=== PATIENT | male | born 1985 | race Two or more races ===

== ENCOUNTER 2025-02-27 11:22 | Inpatient (IN) | payer OTHER ==
[~2025-02-27] VITALS: Ht 170.2 cm; Wt 70.3 kg
[2025-02-27] MEDS ORDERED: ELIQUIS2.5 MG PO (13:21)
[2025-02-27] MEDS ORDERED: 0.9 % SODIUM CHLORIDE 1,000 ML IV STA (13:45)
[2025-02-27] MEDS ORDERED: FAMOTIDINE/PF 20 MG in 0.9 % SODIUM CHLORIDE 8 ML IV PUSH STA (13:47)
[2025-02-27] MEDS ORDERED: ONDANSETRON HCL 2 MG/ML VIAL IV STA (13:47)
[2025-02-27] MEDS ORDERED: ONDANSETRON HCL 2 MG/ML VIAL ONE (13:59)
[2025-02-27] MEDS ORDERED: FAMOTIDINE/PF 20 MG/2 ML VIAL ONE (14:00)
--- NOTE | 2025-02-27 14:23 | NUR ---
SE ORIENTA PTE SOBRE TX A SEGUIR, LA MISMA REFIERE ENTENDER. SE SANTOSH MUESTRA DE LAB, SE CANALIZA Y SE ADMINISTRA MED JHONATAN ORDEN MEDICA
[2025-02-27 14:32] LABS: HEMATOCRIT 44.8 % (39.0-48.0); HEMOGLOBIN 15.6 g/dL (13-16.00); MEAN CELL VOLUME 90.8 fL (80.0-100.00); MEAN CORPUSCULAR HEMOGLOBIN 31.5 pg (27.00-32.0); MEAN CORPUSCULAR HGB CONC 34.7 g/dl (32.0-36.0); PLATELET COUNT 320 K/uL (150-450); RED BLOOD COUNT 4.94 M/uL (4.00-6.00); RED CELL DISTRIBUTION WIDTH 15.4 % (11.5-14.5)
[2025-02-27 14:54] LABS: INR 1.15; PARTIAL THROMBOPLASTIN TIME 29.7 SECONDS (22.0-34.0); PROTHROMBIN TIME 12.4 SECONDS (9.0-11.5)
[2025-02-27 14:55] LABS: ALBUMIN 4.3 gm/dL (3.4-5.0); BILIRUBIN TOTAL 0.53 mg/dL (0.3-1.2); CALCIUM 8.6 mg/dL (8.5-10.1); CREATININE SERUM 0.9 mg/dL (0.70-1.30); GFR 94.44; GLOBULINA 4.2 G/DL (2.4-3.5); POTASSIUM 3.79 mEq/L (3.5-5.1); TOTAL PROTEIN 8.5 gm/dL (6.4-8.2)
[2025-02-27] MEDS ORDERED: METOCLOPRAMIDE HCL 10 MG in 0.9 % SODIUM CHLORIDE 50 ML IV ONE (17:30)
[2025-02-27] MEDS ORDERED: MORPHINE SULFATE 4 MG/ML VIAL IV ONE (17:30)
[2025-02-27] MEDS ORDERED: METOCLOPRAMIDE HCL 5 MG/ML VIAL ONE (17:41)
[2025-02-27] MEDS ORDERED: 0.9 % SODIUM CHLORIDE 1,000 ML IV SCH (18:45)
[2025-02-27] MEDS ORDERED: PIPERACILLIN/TAZOBACTAM SODIUM 3.375 GM in 0.9 % SODIUM CHLORIDE 100 ML IV SCH (18:53)
[2025-02-27] MEDS ORDERED: THIAMINE HCL 100 MG TABLET PO SCH (18:54)
[2025-02-27] MEDS ORDERED: ACETAMINOPHEN 500 MG GEL..CAP PO PRN (19:00)
[2025-02-27] MEDS ORDERED: MORPHINE SULFATE 4 MG/ML CARTRIDGE IV PRN (19:00)
[2025-02-27] MEDS ORDERED: ONDANSETRON HCL 4 MG in 0.9 % SODIUM CHLORIDE 50 ML IV PRN (19:00)
[2025-02-27] MEDS ORDERED: PANTOPRAZOLE SODIUM 40 MG/VIAL VIAL IV ONE (19:00)
[2025-02-27] MEDS ORDERED: PIPERACILLIN/TAZOBACTAM SODIUM 3.375 GM VIAL IV ONE (21:16)
[2025-02-27 23:05] LABS: ABG PH 7.416 (7.35-7.45); ABG pCO2 34.1 mmHg (35-45); BASE EXCESS -2.3 mmol/l; BICARBONATE 21.4 mmol/l (23-25); SaO2 96.6 %; Tco2 22.4 mmol/l; o2 21 %
[2025-02-27 23:06] LABS: allen test NO SATISFACTORY; mode ROOM AIR; puncture site RADIAL RIGHT
[2025-02-28 00:05] VITALS: BP 114/80; O2SAT 96
[2025-02-28] MEDS ORDERED: ACETAMINOPHEN 500 MG GEL..CAP PO ONE (00:09)
[2025-02-28 02:49] LABS: URINE BILIRRUBIN NEGATIVE (NEGATIVE); URINE BLOOD NEGATIVE; URINE GLUCOSE NEGATIVE (NEGATIVE); URINE KETONE 15 (NEGATIVE); URINE LEUKOCYTE NEGATIVE; URINE NITRATE NEGATIVE; URINE PROTEIN NEGATIVE (NEGATIVE); URINE UROBILINOGEN 0.2 E.U./dl
[2025-02-28 03:01] VITALS: BP 138/84
[2025-02-28 03:01] LABS: URINE APPEARANCE CLEAR; URINE COLOR YELLOW
[2025-02-28 03:02] LABS: URINE BACTERIA FEW; URINE EPITHELIAL CELLS 0-4 /HPF; URINE MUCUS NEGATIVE; URINE RBC 0-3 /HPF; URINE WBC 0-2 /hpf
[2025-02-28 07:45] LABS: MAGNESIUM 1.9 mg/dL (1.8-2.4); PHOSPHOROUS 4.1 mg/dL (2.5-4.9)
[2025-02-28] MEDS ORDERED: PANTOPRAZOLE SODIUM 40 MG/VIAL VIAL IV SCH (09:00)
[2025-02-28] MEDS ORDERED: CHLORDIAZEPOXIDE HCL 25 MG CAPSULE PO SCH (09:00)
[2025-02-28 10:14] VITALS: BP 133/84; O2SAT 100
== END 2025-02-28 11:34 | disposition left against medical advice (07) | DRG 440 ==
LOC: ER 11:22 → MEDJ 18:55
PROVIDERS: Emergency Medicine; General Practice; ADMIT Student in an Organized Health Care Education/Training Program; ATTEND Student in an Organized Health Care Education/Training Program
PROC: BW40ZZZ Ultrasonography of Abdomen (ICD-10-PCS; principal; 2025-02-27)
PROC: BW21ZZZ Computerized Tomography (CT Scan) of Abdomen and Pelvis (ICD-10-PCS; 2025-02-27)
DX: K85.90 Acute pancreatitis without necrosis or infection, unspecified (principal); F10.21 Alcohol dependence, in remission; K29.80 Duodenitis without bleeding; Z53.29 Procedure and treatment not carried out because of patient's decision for other reasons